=== PATIENT | female | born 1980 | race Caucasian/White ===

== ENCOUNTER 2019-06-28 10:36 | Emergency (ER) | payer OTHER ==
[~2019-06-28] VITALS: Ht 170.2 cm; Wt 68.2 kg
[2019-06-28 10:39] VITALS: Ht 170.2 cm; Wt 68.2 kg
[2019-06-28] MEDS ORDERED: OMEPRAZOLE20 M1 PO (11:16)
[2019-06-28] MEDS ORDERED: ZANAFLEX4 MG PO (11:16)
[2019-06-28] MEDS ORDERED: VOLTAREN75 MG PO (11:16)
[2019-06-28 12:13] VITALS: BP 120/73
== END 2019-06-28 12:15 | disposition home or self-care (01) ==
LOC: D.ER 10:36
DX: M62.838 Other muscle spasm (principal)

== ENCOUNTER 2019-09-09 21:01 | Emergency (ER) | payer OTHER ==
[~2019-09-09] VITALS: Ht 170.2 cm; Wt 66.8 kg
[~2019-09-09 21:01] MED LIST: OMEPRAZOLE20 M1 PO; VOLTAREN75 MG PO; ZANAFLEX4 MG PO
[2019-09-09 21:06] VITALS: Ht 170.2 cm; Wt 66.8 kg
[2019-09-09] MEDS ORDERED: CLEOCIN HCL300 MG PO (21:13)
[2019-09-09] MEDS ORDERED: IBUPROFEN800 MG PO (21:13)
[2019-09-09 22:02] VITALS: BP 94/61
== END 2019-09-09 22:04 | disposition home or self-care (01) ==
LOC: D.ER 21:01
DX: K04.7 Periapical abscess without sinus (principal); K08.89 Other specified disorders of teeth and supporting structures